=== PATIENT | male | born 1990 | race Caucasian/White ===

== ENCOUNTER → 2016-11-28 | Outpatient (CLI) | payer BC ==
--- NOTE | 2016-11-28 15:48 | Diagnostic Imaging Report ---
INDICATION: The patient reports a lump posteriorly along the Achilles tendon bilaterally. FINDINGS: A BB marker is placed immediately over the attachment of the Achilles tendon to the calcaneus. There are no bony abnormalities. The shadow of the Achilles tendon is uniform and symmetrical with no evidence of thickening or bulging. No findings are seen of edema displacing the pre-Achilles tendon fat pad. The ankle mortise appears normal bilaterally with smooth articulating surfaces. IMPRESSION: No bony abnormalities are noted within either ankle. The Achilles tendon attachments appear symmetrical and uniform. Depending on the patient's symptoms, MRI of the ankle would be of benefit for evaluation of the Achilles tendon. Dictated by: Dictated on workstation # [id number]
== END ==
LOC: RAD 14:46
PROVIDERS: ATTEND Nurse Practitioner Family
DX: M67.873 Other specified disorders of tendon, right ankle and foot (principal); M67.874 Other specified disorders of tendon, left ankle and foot